=== PATIENT | female | born 1965 | race Caucasian/White ===

== ENCOUNTER 2018-06-27 19:45 | Inpatient (IN) | payer OTHER ==
[~2018-06-27] VITALS: Ht 147.3 cm; Wt 138.8 kg
--- NOTE | ~2018-06-27 | EKG ---
[address] [place] [address] ELECTROCARDIOGRAM REPORT Name: DICK TENA Room #: 359-P ADM IN M.R.#: [id number] Admission: 06/27/18 Attend Phys: Domingo Lorenz MD Discharge: Date of : 61 Report #: [id number] THIS REPORT FOR: //name// [facility] Test Date: 2018-06-28 Test Time: 09:53:57 Pat Name: DICK TENA Department: Room: 359 Gender: F Timber Packer: JENNIFER : 1965 Requested By: Domingo Lorenz Order Number: [id number] MD: Cyrus Ramirez Measurements Intervals [place] Rate: 100 P: 30 OH: 197 QRS: -35 QRSD: 87 T: 28 QT: 352 QTc: 454 Interpretive Statements Sinus tachycardia Borderline prolonged OH interval Low voltage, precordial leads Probable left ventricular hypertrophy Anterior Q waves, possibly due to LVH Artifact in lead(s) I,II,aVR,aVL,aVF,V1 No previous ECG available for comparison Electronically Signed On 06-28-2018 20:45:15 SHINGLE GRADER by Cyrus Ramirez [email or web address] <ELECTRONICALLY SIGNED> By: Cyrus Ramirez MD 06/28/18 2045 2 2 Cyrus Ramirez MD /EPI
--- NOTE | ~2018-06-27 | 2DMMODE ---
[facility] [address] [place] [address] 2 D/M-MODE ECHOCARDIOGRAM Name: TENADICK J Room #: 359-P ADM IN M.R.#: [id number] Admission: 06/27/18 Attend Phys: Alan Hampton MD Discharge: Date of : 61 Date of Service: 06/29/18 0930 Report #: [id number] THIS REPORT FOR: //name// APPROVED REPORT Study performed: 06/29/2018 08:18:37 EXAM: Comprehensive 2D, Doppler, and color-flow Echocardiogram Patient Location: In-Patient Room #: 359 Status: routine BSA: 2.15 HR: 68 bpm BP: 144/86 mmHg Other Information Study Quality: Technically Difficult Technically limited study due to body habitus, inability to position patient. Indications Congestive Heart Failure COPD Diabetes Hypertension/HDD PE 2D Dimensions RVDd: 35.65 mm IVSd: 14.75 (7-11mm) LVOT Diam: 21.58 (18-24mm) LVDd: 43.86 mm PWd: 15.83 (7-11mm) Ascending Ao: 31.47 (22-36mm) LVDs: 27.86 (25-40mm) Aortic Root: 32.66 mm IVC: 28.00 mm Volumes Left Atrial Volume (Systole) Single Plane 4CH: 45.20 mL Single Plane 2CH: 28.94 mL LA ESV Index: 20.00 mL/m2 Aortic Valve AoV Peak Parker.: 1.40 m/s AO Peak Gr.: 7.85 mmHg LVOT Max P.59 mmHg LVOT Max V: 1.07 m/s GRIFFIN Vmax: 2.80 cm2 [facility] [address] [place] [address] 2 D/M-MODE ECHOCARDIOGRAM Name: DICK TENA Room #: 359-P [facility] IN ..#: [id number] Admission: 06/27/18 Attend Phys: Alan Hampton MD Discharge: Date of : 61 Date of Service: 06/29/18 0930 Report #: [id number] Mitral Valve E/A Ratio: 1.2 MV Decel. Time: 213.45 ms MV E Max Parker.: 0.74 m/s MV A Parker.: 0.60 m/s MV PHT: 61.90 ms IVRT: 51.90 ms Pulmonary Valve PV Peak Parker.: 0.82 m/s PV Peak Gr.: 2.66 mmHg Tricuspid Valve TR Peak Parker.: 2.86 m/s RAP Estimate: 10.00 mmHg TR Peak Gr.: 32.62 mmHg PA Pressure: 43.00 mmHg Left Ventricle The left ventricle is normal size. There is normal LV segmental wall motion. Moderate concentric left ventricular hypertrophy. The left ventricular systolic function is normal. The left ventricular ejection fraction is within the normal range. LVEF is 55-60%. Transmitral Doppler flow pattern suggests pseudonormalization. Right Ventricle The right ventricle is normal size. The right ventricular systolic function is normal. Atria The left atrium size is normal. Right atrium is at the upper limits of normal. Aortic Valve The aortic valve is normal in structure. No aortic regurgitation is present. There is no aortic valvular stenosis. Mitral Valve The mitral valve is normal in structure. Trace mitral regurgitation. No evidence of mitral valve stenosis. Tricuspid Valve The tricuspid valve is normal in structure. Mild tricuspid regurgitation. PAP is estimated at 40 mmHg. Pulmonic Valve Pulmonic valve is not well visualized. [place] [address] 2 D/M-MODE ECHOCARDIOGRAM Name: MALLIKADICK J Room #: 359-P [facility] IN M.R.#: [id number] Admission: 06/27/18 Attend Phys: Alan Hampton MD Discharge: Date of : 61 Date of Service: 06/29/18 0930 Report #: [id number] regurgitation visualized. Great Vessels The aortic root is normal in size. IVC is dilated and collapses >50% with inspiration. Pericardium There is no pericardial effusion. <Conclusion> The left ventricular systolic function is normal. There is normal LV segmental wall motion. EF 60% Moderate concentric left ventricular hypertrophy. Moderate diastolic dysfunction The aortic valve is normal in structure. No aortic regurgitation or stenosis1 The mitral valve is normal in structure. Trace mitral regurgitation. Mild tricuspid regurgitation. Pulmonary artery pressure estimated at 40 mmHg. There is no pericardial effusion. <ELECTRONICALLY SIGNED> By: Joao De MD, FACC 06/29/18929 9 9 Joao De MD, FACC /INF
--- NOTE | ~2018-06-27 | EKG ---
[address] [address] ELECTROCARDIOGRAM REPORT Name: DICK TENA Room #: 359-P ADM IN .R.#: [id number] Admission: 06/27/18 Attend Phys: Domingo Lorenz MD Discharge: Date of : 61 Report #: [id number] THIS REPORT FOR: //name// [facility] Test Date: 2018-06-27 Test Time: 20:16:43 Pat Name: DICK TENA Department: Room: [facility] Gender: F Workers Compensation Attorney: [id number] : 1965 Requested By: Suri Escalante Order Number: [id number] MD: Cyrus Ramirez Measurements Intervals [place] Rate: 95 P: 31 IN: 215 QRS: -34 QRSD: 88 T: 31 QT: 353 QTc: 444 Interpretive Statements Sinus rhythm Prolonged [place] interval Probable left atrial enlargement Left axis deviation Low voltage, precordial leads RSR' in V1 or V2, probably normal variant Consider anterior infarct No previous ECG available for comparison Electronically Signed On 06-28-2018 20:37:45 TILE SETTER SUPERVISOR by Cyrus Ramirez [email or web address] <ELECTRONICALLY SIGNED> By: Cyrus Ramirez MD 06/28/18 2037 15 15 Cyrus Ramirez MD /EPI
[~2018-06-27 19:45] MED LIST: ADVAIR 500-501 EACH; ALPRAZOLAM; AMBIEN; APAP500; BACLOFEN; BENADRYL25 MG; CITALOPRAM; CLARINEX5 MG; CLARITIN; CLONAZEPAM; COMPAZINE10 M1; COREG; DEPAKOTE; DEPAKOTE ER500 MG; DOXYCYCLINE; EPIPEN0.3 MG/0.3; FLONASE; GABAPENTIN; MECLIZINE 25 MG25 M1; METFORMIN; METOCLOPRAMIDE10 MG; NAPROSYN; OSCIMIN0.125 MG; PHENERGAN 25 MG25 M1; POTASSIUM20; PREMPRO 0.625-1 EACH; PRINZIDE 10-121 EACH; PROAIR HFA8.5 GM; REQUIP; SINGULAIR; TOPAMAX; VITAMIN D-32000 UNIT; ZANTAC; ZOCOR
[2018-06-27 19:46] VITALS: BP 203/104
[2018-06-27 20:29] LABS: ABSOLUTE NEUTROPHILS 7.3 thou/uL (1.4-8.2); BASOPHILS 1.1 % (0.0-2.0); EOSINOPHILS 1.4 % (0.0-3.0); HEMATOCRIT 39.6 % (37.0-47.0); HEMOGLOBIN 13.4 gm/dL (12.0-15.0); LYMPHOCYTES 18.9 % (24.0-44.0); MCH 29.2 pg (26.0-34.0); MCHC 33.8 g/dL (28.0-37.0); MCV 86.2 fL (80.0-100.0); PLATELET COUNT 205 thou/uL (150-400); POLYS 72.6 % (36.0-66.0); RBC 4.59 mil/uL (4.20-5.00); RDW 15.4 % (10.5-14.5); WBC 10.1 thou/uL (4.0-11.0)
[2018-06-27 20:37] LABS: ANION GAP 10 mmol/L (7-16); BUN 15 mg/dL (7-18); CALCIUM 9.1 mg/dL (8.5-10.1); CHLORIDE 97 mmol/L (98-107); CO2 28 mmol/L (21-32); GLUCOSE 472 mg/dL (74-106); SODIUM 135 mmol/L (136-145)
[2018-06-27 20:46] LABS: ALBUMIN 3.2 g/dL (3.4-5.0); SGOT 8 U/L (15-37); SGPT 18 U/L (30-65); TOTAL BILIRUBIN 0.3 mg/dL (<0.1-1.0); TOTAL PROTEIN 7.4 g/dL (6.4-8.2); TROPONIN-I <0.06 ng/mL (<0.06)
[2018-06-27 22:32] VITALS: BP 163/83
[2018-06-27 23:02] VITALS: BP 163/83
[2018-06-27] MEDS ORDERED: TRESIBA FL200 UNIT/1 SUBQ (23:42)
[2018-06-27] MEDS ORDERED: LIPITOR10 MG PO (23:42)
[2018-06-27] MEDS ORDERED: HUMALOG100 UNIT/1 SUBQ (23:43)
[2018-06-27] MEDS ORDERED: VENTOLIN HFA 1818 GM INH (23:45)
[2018-06-27] MEDS ORDERED: COREG25 MG PO (23:46)
[2018-06-27] MEDS ORDERED: LASIX 20 MG TAB20 MG PO (23:46)
[2018-06-27] MEDS ORDERED: ANTIVERT25 MG PO (23:46)
[2018-06-27] MEDS ORDERED: ASPIR 8181 MG PO (23:47)
[2018-06-27] MEDS ORDERED: FLONASE 0.05%50 MCG NASAL (23:48)
[2018-06-27] MEDS ORDERED: LISINOPRIL-HCT1 EAC1 PO (23:49)
[2018-06-27] MEDS ORDERED: NORVASC10 MG PO (23:50)
[2018-06-27] MEDS ORDERED: NEURONTIN 400400 M1 PO (23:52)
[2018-06-27] MEDS ORDERED: PHENERGAN 25 MG25 MG PO (23:53)
[2018-06-27] MEDS ORDERED: ZANTAC 150MG T150 MG PO (23:53)
[2018-06-27] MEDS ORDERED: VOLTAREN GEL 1100 G2 TOP (23:54)
[2018-06-27] MEDS ORDERED: LIORESAL 10 MG10 MG PO (23:55)
[2018-06-27] MEDS ORDERED: SERTRALINE HCL50 MG PO (23:55)
[2018-06-27] MEDS ORDERED: REQUIP3 MG PO (23:56)
[2018-06-27] MEDS ORDERED: ADVAIR HFA 230M12 GM INH (23:57)
[2018-06-27] MEDS ORDERED: NYAMYC15 GM TOP (23:59)
[2018-06-28 00:40] VITALS: BP 178/98
[2018-06-28 02:23] VITALS: BP 165/93
[2018-06-28 06:43] LABS: CHOLESTEROL 176 mg/dL (<200); HDL CHOLESTEROL 45 mg/dL (>40); LDL CHOLESTEROL 114 mg/dL (<100); TC:HDL 3.9 Ratio (Not establshd); TRIGLYCERIDE 87 mg/dL (<150); VLDL 17 mg/dL (<40)
[2018-06-28 06:45] LABS: CALCIUM 8.9 mg/dL (8.5-10.1); CREATININE 1.1 mg/dL (0.6-1.0); POTASSIUM 4.1 mmol/L (3.5-5.1); SERUM ASSESSMENT Clear
[2018-06-28 07:44] VITALS: BP 194/108
[2018-06-28 11:39] VITALS: BP 143/91
[2018-06-28 16:09] VITALS: BP 161/86
[2018-06-28 20:00] VITALS: BP 149/91
[2018-06-29 00:05] LABS: GLYCOHEMOGLOBIN (HGB A1C) 11.1 % (4.8-5.6)
[2018-06-29 04:00] VITALS: BP 150/82
[2018-06-29 07:38] VITALS: BP 144/86
[2018-06-29 11:51] VITALS: BP 128/76
[2018-06-29 15:11] VITALS: BP 119/74
[2018-06-29 19:55] VITALS: BP 130/73
[2018-06-30 04:00] VITALS: BP 120/69
[2018-06-30 07:43] VITALS: BP 154/96
[2018-06-30 11:12] VITALS: BP 124/78
[2018-06-30] MEDS ORDERED: XARELTO15 MG PO (12:03)
[2018-06-30 13:43] VITALS: BP 124/78
[2018-06-30 15:40] VITALS: BP 145/80
[2018-06-30 16:38] VITALS: BP 145/80
== END 2018-06-30 19:00 | disposition home or self-care (01) | DRG 175 ==
LOC: ER 19:45 → EROBS 21:37 → 3W 21:37 → ENTRNSPT 06-30 18:37 → 3W 06-30 19:00
PROVIDERS: Nurse Practitioner Family; Physician Assistant
DX: I26.99 Other pulmonary embolism without acute cor pulmonale (principal); I50.33 Acute on chronic diastolic (congestive) heart failure; I82.431 Acute embolism and thrombosis of right popliteal vein; J44.1 Chronic obstructive pulmonary disease with (acute) exacerbation; Z68.44 Body mass index [BMI] 60.0-69.9, adult; E66.2 Morbid (severe) obesity with alveolar hypoventilation; I11.0 Hypertensive heart disease with heart failure; E27.9 Disorder of adrenal gland, unspecified; F31.9 Bipolar disorder, unspecified; E11.40 Type 2 diabetes mellitus with diabetic neuropathy, unspecified; G40.909 Epilepsy, unspecified, not intractable, without status epilepticus; G25.81 Restless legs syndrome; Z87.891 Personal history of nicotine dependence; Z79.51 Long term (current) use of inhaled steroids; Z91.14 Patient's other noncompliance with medication regimen; Z79.4 Long term (current) use of insulin; Z79.82 Long term (current) use of aspirin; Z79.899 Other long term (current) drug therapy; Z88.0 Allergy status to penicillin; Z88.8 Allergy status to other drugs, medicaments and biological substances; Z91.048 Other nonmedicinal substance allergy status
CPT/HCPCS: 10879